=== PATIENT | female | born 1995 | race Caucasian/White ===

== ENCOUNTER 2017-09-11 07:11 | Emergency (ER) | payer OTHER ==
[~2017-09-11] VITALS: Ht 165.1 cm; Wt 165.0 kg
[2017-09-11 08:05] LABS: BASOPHILS # (AUTO) 0.09 x10^3/uL (0-0.1); BASOPHILS % (AUTO) 1 % (0-1); EOSINOPHILS # (AUTO) 0.26 x10^3/uL (0-0.4); EOSINOPHILS % (AUTO) 2 % (1-7); LYMPHOCYTES # (AUTO) 3.38 x10^3/uL (1-3.4); LYMPHOCYTES % (AUTO) 26 % (22-44); MD NO; MEAN CORPUSCULAR HEMOGLOBIN 27.6 pg (27.0-34.8); MEAN CORPUSCULAR HGB CONC 33.1 g/dL (32.4-35.8); MEAN CORPUSCULAR VOLUME 83.3 fL (80-100); MEAN PLATELET VOLUME 9.1 fL (7.4-10.4); MONOCYTES # (AUTO) 0.88 x10^3/uL (0.2-0.8); MONOCYTES % (AUTO) 7 % (2-9); NEUTROPHILS # (AUTO) 8.48 x10^3/uL (1.8-6.8); NEUTROPHILS % (AUTO) 65 % (42-75); PLATELET COUNT 339 x10^3/uL (130-400); RED BLOOD COUNT 4.58 x10^6/uL (3.82-5.3); RED CELL DISTRIBUTION WIDTH 13.7 % (9.6-15.2)
[2017-09-11 08:20] LABS: CALCIUM 8.7 mg/dL (8.5-10.1); CHLORIDE 104 mmol/L (98-107); CREATININE 0.74 mg/dL (0.55-1.02)
[2017-09-11 08:21] LABS: ALANINE AMINOTRANSFERASE 25 U/L (12-78); ALBUMIN 3.1 g/dL (3.4-5.0)
[2017-09-11 08:25] LABS: ALKALINE PHOSPHATASE 79 U/L (45-117); ANION GAP 8 mmol/L (5-15); BILIRUBIN,TOTAL 0.3 mg/dL (0.2-1.0); TOTAL PROTEIN 7.8 g/dL (6.4-8.2)
[2017-09-11] MEDS ORDERED: HYDROcodone/APAP 5/325 TABLET ONE (09:01)
[2017-09-11 09:50] VITALS: BP 141/74
[2017-09-11] MEDS ORDERED: HYDROcodone/APAP 5/325 TABLET PO ONE (10:00)
== END 2017-09-11 10:33 | disposition home or self-care (01) ==
LOC: ED 09:07
DX: L03.115 Cellulitis of right lower limb (principal)
CPT/HCPCS: 36415; 80053; 83880; 85025; 99285

== ENCOUNTER 2018-09-13 07:42 | Inpatient (IN) | payer OTHER ==
[~2018-09-13] VITALS: Ht 167.6 cm; Wt 171.6 kg
--- NOTE | 2018-09-13 08:05 | NUR ---
PT LAYING ON GURNEY ON STOMACH, PA JUST ASSESSED PT. PT TEARFUL STATING SHE HAS A HX OF RECTAL ABSCESS STATING SHE PREVIOUSLY HAD A SEPTIC INFECTION FROM ONE. PT STATES PAIN IS AN 8.5/10 AT THIS TIME. PT AWARE OF POC. DENIES NEEDS AT THIS TIME.
[2018-09-13] MEDS ORDERED: ONDANSETRON 2MG/ML, 2ML ONE ×2 (08:23→17:15)
[2018-09-13] MEDS ORDERED: MORPHINE SULFATE 4 MG/ML, 1ML ONE (08:23)
[2018-09-13] MEDS ORDERED: ONDANSETRON 2MG/ML, 2ML IVPush ONE (08:30)
[2018-09-13] MEDS ORDERED: SODIUM CHLORIDE 0.9% 1,000ML IVBOLUS ONE (08:30)
[2018-09-13] MEDS ORDERED: MORPHINE SULFATE 4 MG/ML, 1ML IVPush PRN (08:30)
[2018-09-13 08:44] LABS: MEAN CORPUSCULAR HEMOGLOBIN 26.4 pg (27.0-34.8); MEAN CORPUSCULAR HGB CONC 32.6 g/dL (32.4-35.8); MEAN CORPUSCULAR VOLUME 80.9 fL (80-100); MEAN PLATELET VOLUME 8.8 fL (7.4-10.4); PLATELET COUNT 368 x10^3/uL (130-400); RED BLOOD COUNT 4.58 x10^6/uL (3.82-5.3); RED CELL DISTRIBUTION WIDTH 14.6 % (9.6-15.2)
--- NOTE | 2018-09-13 08:49 | NUR ---
PIV ATTEMPTED X2 AT THIS TIME. IV US TO BE ATTEMPTED. PT RESTING ON GURNEY WITH PAIN IN RECTAL AREA. VSS. NADN.
[2018-09-13 08:53] LABS: ALBUMIN 2.9 g/dL (3.4-5.0); ANION GAP 6 mmol/L (5-15); CALCIUM 8.9 mg/dL (8.5-10.1); CHLORIDE 109 mmol/L (98-107)
[2018-09-13 08:59] LABS: CREATININE 0.83 mg/dL (0.55-1.02)
[2018-09-13 09:07] LABS: BASOPHILS # (AUTO) 0.05 x10^3/uL (0-0.1); BASOPHILS % (AUTO) 0 % (0-1); EOSINOPHILS # (AUTO) 0.14 x10^3/uL (0-0.4); EOSINOPHILS % (AUTO) 1 % (1-7); LYMPHOCYTES % (AUTO) 18 % (22-44); MD SCAN; MONOCYTES % (AUTO) 7 % (2-9); NEUTROPHILS # (AUTO) 12.92 x10^3/uL (1.8-6.8); NEUTROPHILS % (AUTO) 74 % (42-75)
--- NOTE | 2018-09-13 09:14 | NUR ---
PIV STARTED. PT MEDICATED PER EMAR. PT RESTING ON GURNEY. NADN. LIGHTS DIMMED FOR PT COMFORT. PT DENIES NEEDS. CALL LIGHT IN REACH.
--- NOTE | 2018-09-13 09:18 | NUR ---
Preceptor RN: [facility]
[2018-09-13] MEDS ORDERED: OMNIPAQUE 350 MG/ML, 150 ML BOTTLE ONE (09:33)
--- NOTE | 2018-09-13 09:41 | NUR ---
PT BACK FROM CT. LAB AT BEDSIDE DRAWING BLOOD CULTURES. PT AWARE OF NEED FOR UA. PT DENIES NEEDS. RAFAL. AMBROSE.
--- NOTE | 2018-09-13 09:48 | NUR ---
PT RESTING ON GURNEY. VSS. RAFAL. STATES SHE DOES NOT NEED TO URINATE AT THIS TIME BUT WILL LET THIS RN KNOW WHEN SHE NEEDS TO GO. DENIES NEEDS.
--- NOTE | 2018-09-13 10:07 | NUR ---
PT AMBULATORY TO [facility] WITH STEADY GAIT TO PROVIDE URINE SAMPLE AT THIS TIME.
--- NOTE | 2018-09-13 10:16 | NUR ---
PT AMBULATORY WITH STEADY GAIT BACK TO ROOM. RESTING ON GURNEY AND CONNECTED TO MONITORS. NADN. VSS. CALL LIGHT IN REACH. PT DENIES NEEDS AT THIS TIME.
[2018-09-13 10:28] LABS: MICROSCOPIC NOT IND
[2018-09-13 10:29] LABS: CULTURE INDICATED? NO
[2018-09-13] MEDS ORDERED: HYDROmorphone 1 MG/ML, 1ML VIAL ONE (10:46)
--- NOTE | 2018-09-13 10:49 | NUR ---
PT MEDICATED PER EMAR AT THIS TIME. STATES PAIN IS CURRENTLY 7.5/10. DENIES NEEDS. VSS. PAULINEN.
[2018-09-13] MEDS ORDERED: METRONIDAZOLE PMX 500MG/100ML 100 ML IV ONE (11:00)
[2018-09-13] MEDS ORDERED: HYDROmorphone 2 MG/ML, 1ML IVPush PRN ×3 (11:00→17:30)
[2018-09-13] MEDS ORDERED: CIPROFLOXACIN/PMX 400MG/200ML 200 ML IV ONE (11:00)
[2018-09-13] MEDS ORDERED: BIRTH CONTROL (11:01)
--- NOTE | 2018-09-13 11:02 | NUR ---
PT STATES HER PAIN IS NOW 2/. RESTING ON GURARSEN. RAFAL. VSS.
[2018-09-13] MEDS ORDERED: POTASSIUM CHLORIDE 20 MEQ in D5%-0.45% NACL 1,000 ML IV ONE (11:04)
[2018-09-13] MEDS ORDERED: CIPROFLOXACIN/PMX 400MG/200ML 200 ML ONE (11:05)
[2018-09-13] MEDS ORDERED: SODIUM CHLORIDE FLUSH 10ML SYR IVF PRN (11:30)
[2018-09-13] MEDS ORDERED: ONDANSETRON 2MG/ML, 2ML IVPush PRN (11:30)
--- NOTE | 2018-09-13 11:32 | NUR ---
REPORT GIVEN TO TANIA NAVARRETE.
[2018-09-13 11:51] VITALS: BP 102/66
[2018-09-13 13:25] VITALS: BP 113/75
[2018-09-13] MEDS ORDERED: FENTANYL PF 100 MCG/2ML ONE ×2 (15:55→17:13)
[2018-09-13] MEDS ORDERED: MIDAZOLAM 1 MG/ML, 2ML ONE (15:55)
[2018-09-13] MEDS ORDERED: OXYcodone 5 MG/5 ML ORAL.SOL UDC ONE (17:13)
[2018-09-13] MEDS ORDERED: ROCURONIUM 10MG/ML,5ML ONE ×2 (17:15→17:16)
[2018-09-13] MEDS ORDERED: SUCCINYLCHOLINE 20 MG/ML, 10ML ONE (17:15)
[2018-09-13] MEDS ORDERED: NEOSTIGMINE 1 MG/ML, 10ML ONE (17:15)
[2018-09-13] MEDS ORDERED: PROPOFOL 10 MG/ML, 20ML ONE (17:15)
[2018-09-13] MEDS ORDERED: CEFAZOLIN 1,000 MG ONE (17:15)
[2018-09-13] MEDS ORDERED: DEXAMETHASONE 4 MG/ML, 1ML ONE (17:15)
[2018-09-13] MEDS ORDERED: ACETAMINOPHEN 325 MG TABLET PO PRN ×2 (17:30→20:00)
[2018-09-13] MEDS ORDERED: hydrALAzine 20 MG/ML, 1ML IV PRN ×2 (17:30→20:00)
[2018-09-13] MEDS ORDERED: MEPERIDINE/PF 25MG/0.5ML IVPush PRN (17:30)
[2018-09-13] MEDS ORDERED: PROMETHAZINE 25 MG/ML, 1ML IV PRN (17:30)
[2018-09-13] MEDS ORDERED: DIAZEPAM 5 MG/ML, 2ML IVPush PRN (17:30)
[2018-09-13] MEDS ORDERED: LABETALOL 5MG/ML, 20ML IV PRN (17:30)
[2018-09-13] MEDS ORDERED: OXYcodone 5 MG/5 ML ORAL.SOL UDC PO PRN ×2 (17:30→19:00)
[2018-09-13] MEDS ORDERED: KETOROLAC 30 MG/1 ML IV PRN (17:30)
[2018-09-13] MEDS ORDERED: FENTANYL PF 100 MCG/2ML IV PRN (17:30)
[2018-09-13] MEDS ORDERED: ALBUTEROL SULFATE 2.5 MG/3 ML NPPB PRN (17:30)
[2018-09-13] MEDS ORDERED: LORazepam 2 MG/ML, 1ML IV PRN (19:00)
[2018-09-13] MEDS ORDERED: LORazepam 1MG TABLET PO PRN (19:00)
[2018-09-13 19:20] VITALS: BP 130/74
[2018-09-13] MEDS ORDERED: DIPHENHYDRAMINE 50 MG/ML, 1ML IV PRN (20:00)
[2018-09-13] MEDS ORDERED: ENALAPRILAT 1.25 MG/ML, 2ML IV PRN (20:00)
[2018-09-13] MEDS ORDERED: DIPHENHYDRAMINE 25 MG CAPSULE PO PRN (20:00)
[2018-09-13] MEDS: ONDANSETRON 2MG/ML, 2ML IV PRN (21:02)
[2018-09-13] MEDS: OXYcodone/APAP 5/325MG TABLET PO PRN (21:02)
[2018-09-13] MEDS: METRONIDAZOLE PMX 500MG/100ML 100 ML IVPB SCH (21:08)
[2018-09-13] MEDS: [UNRECOGNIZED DRUG - REMARK] MC SCH (21:09)
[2018-09-13] MEDS: CIPROFLOXACIN/PMX 400MG/200ML 200 ML IVPB SCH (23:30)
[2018-09-13] MEDS: POTASSIUM CHLORIDE 20 MEQ in D5%-0.45% NACL 1,000 ML IV SCH (23:30)
[2018-09-13 23:56] VITALS: BP 125/78
[2018-09-14] MEDS: OXYcodone/APAP 5/325MG TABLET PO PRN ×6 (00:10→17:26)
[2018-09-14 03:07] VITALS: BP 126/70
[2018-09-14] MEDS: [UNRECOGNIZED DRUG - REMARK] MC SCH (03:30)
[2018-09-14 05:03] LABS: BASOPHILS # (AUTO) 0.01 x10^3/uL (0-0.1); BASOPHILS % (AUTO) 0 % (0-1); EOSINOPHILS % (AUTO) 0 % (1-7); LYMPHOCYTES # (AUTO) 1.03 x10^3/uL (1-3.4); LYMPHOCYTES % (AUTO) 6 % (22-44); MD NO; MEAN CORPUSCULAR HEMOGLOBIN 26.6 pg (27.0-34.8); MEAN CORPUSCULAR HGB CONC 32.2 g/dL (32.4-35.8); MEAN CORPUSCULAR VOLUME 82.6 fL (80-100); MEAN PLATELET VOLUME 8.9 fL (7.4-10.4); MONOCYTES # (AUTO) 0.56 x10^3/uL (0.2-0.8); MONOCYTES % (AUTO) 3 % (2-9); NEUTROPHILS # (AUTO) 14.86 x10^3/uL (1.8-6.8); NEUTROPHILS % (AUTO) 90 % (42-75); PLATELET COUNT 382 x10^3/uL (130-400); RED BLOOD COUNT 4.33 x10^6/uL (3.82-5.3); RED CELL DISTRIBUTION WIDTH 14.7 % (9.6-15.2)
[2018-09-14 05:10] LABS: CHLORIDE 107 mmol/L (98-107)
[2018-09-14 05:15] LABS: ALBUMIN 2.6 g/dL (3.4-5.0); ANION GAP 9 mmol/L (5-15); CALCIUM 8.5 mg/dL (8.5-10.1); CREATININE 0.71 mg/dL (0.55-1.02)
[2018-09-14] MEDS: METRONIDAZOLE PMX 500MG/100ML 100 ML IVPB SCH (05:18)
[2018-09-14 07:45] VITALS: BP 130/78
[2018-09-14] MEDS: CIPROFLOXACIN/PMX 400MG/200ML 200 ML IVPB SCH (11:15)
[2018-09-14] MEDS: POTASSIUM CHLORIDE 20 MEQ in D5%-0.45% NACL 1,000 ML IV SCH (12:36)
[2018-09-14] MEDS: ONDANSETRON 2MG/ML, 2ML IV PRN (13:00)
[2018-09-14 13:38] VITALS: BP 126/72
[2018-09-14] MEDS ORDERED: SULF1TAB24 PO (16:07)
[2018-09-14] MEDS ORDERED: OXYC-302 PO (16:09)
[2018-09-14] MEDS ORDERED: ENOXAPARIN 40 MG/0.4 ML SQ SCH (19:00)
[2018-11-28] MEDS ORDERED: TRAM50TA2 PO (12:59)
== END 2018-09-14 19:45 | disposition home or self-care (01) | DRG 345 ==
LOC: ED 10:41 → EDIP 11:21 → 4NOR 11:50
PROVIDERS: ADMIT Surgery; ATTEND Surgery
PROC: 0D9P0ZZ Drainage of Rectum, Open Approach (ICD-10-PCS; principal; 2018-09-13 16:00)
DX: K61.2 Anorectal abscess (principal); Z68.44 Body mass index [BMI] 60.0-69.9, adult; E66.01 Morbid (severe) obesity due to excess calories; K62.89 Other specified diseases of anus and rectum; Z88.0 Allergy status to penicillin; Z88.1 Allergy status to other antibiotic agents; Z82.3 Family history of stroke; Z83.3 Family history of diabetes mellitus; Z82.49 Family history of ischemic heart disease and other diseases of the circulatory system
CPT/HCPCS: 36415; 72193; 80048; 81003; 82040; 83605; 84145; 84703; 85025; 87040; 87070; 87075; 87205; 96361; 96374; 96375; G0378; J0690; J0744; J1100; J1170; J2250; J2405; J2704; J2710; J3010; J3480; Q9967; J0330; J2270; J7030

== ENCOUNTER 2019-02-03 08:04 | Outpatient (CLI) | payer OTHER ==
[~2019-02-03 08:04] MED LIST: BIRTH CONTROL; OXYC-302 PO; SULF1TAB24 PO; TRAM50TA2 PO
[2019-02-03] MEDS ORDERED: LORA-446 PO (08:49)
[2019-02-03] MEDS ORDERED: NORG1TAB7 PO (08:49)
== END 2019-02-03 23:59 | disposition home or self-care (01) ==
LOC: STAR 08:04
PROVIDERS: ATTEND Surgery
DX: Z02.9 Encounter for administrative examinations, unspecified (principal)

== ENCOUNTER 2019-02-07 06:03 | Day surgery (SDC) | payer OTHER ==
[~2019-02-07] VITALS: Ht 160 cm; Wt 166.0 kg
[~2019-02-07 06:03] MED LIST changes: +LORA-446 PO; +NORG1TAB7 PO
[2019-02-07 06:13] VITALS: BP 156/92
[2019-02-07] MEDS ORDERED: LACTATED RINGERS 1,000 ML IV SCH (06:15)
[2019-02-07] MEDS ORDERED: EPINEPHRINE 1 MG/ML, 1ML ONE (06:29)
[2019-02-07] MEDS ORDERED: BUPIVACAINE/PF 0.5% ONE (06:29)
[2019-02-07] MEDS ORDERED: ALBU8.5H8 PO (06:35)
[2019-02-07 06:53] LABS: HCG UR SG 1.024 (1.003-1.030)
[2019-02-07] MEDS ORDERED: PROPOFOL 50 ML ONE (06:57)
[2019-02-07] MEDS ORDERED: FENTANYL PF 250 MCG/5ML ONE (06:58)
[2019-02-07] MEDS ORDERED: MIDAZOLAM 1 MG/ML, 2ML ONE (06:58)
[2019-02-07] MEDS ORDERED: CIPROFLOXACIN/PMX 400MG/200ML 200 ML ONE (07:28)
[2019-02-07] MEDS ORDERED: METRONIDAZOLE PMX 500MG/100ML 100 ML ONE (07:28)
[2019-02-07] MEDS ORDERED: HYDROmorphone 2 MG/ML, 1ML IVPush PRN (07:30)
[2019-02-07] MEDS ORDERED: MIDAZOLAM 1 MG/ML, 2ML IV PRN (07:30)
[2019-02-07] MEDS ORDERED: EPHEDRINE 50 MG/ML, 1ML IM PRN (07:30)
[2019-02-07] MEDS ORDERED: EPHEDRINE 50 MG/ML, 1ML IVPush PRN (07:30)
[2019-02-07] MEDS ORDERED: ONDANSETRON ODT 8 MG PO PRN (07:30)
[2019-02-07] MEDS ORDERED: METOPROLOL 1 MG/ML, 5ML IV PRN (07:30)
[2019-02-07] MEDS ORDERED: ONDANSETRON 2MG/ML, 2ML IV PRN (07:30)
[2019-02-07] MEDS ORDERED: PROMETHAZINE 25 MG/ML, 1ML IV PRN (07:30)
[2019-02-07] MEDS ORDERED: DIAZEPAM 5 MG/ML, 2ML IVPush PRN (07:30)
[2019-02-07] MEDS ORDERED: OXYcodone 5 MG/5 ML ORAL.SOL UDC PO PRN (07:30)
[2019-02-07] MEDS ORDERED: DIPHENHYDRAMINE 50 MG/ML, 1ML IVPush PRN (07:30)
[2019-02-07] MEDS ORDERED: ACETAMINOPHEN 325 MG TABLET PO PRN (07:30)
[2019-02-07] MEDS ORDERED: MEPERIDINE/PF 25MG/ML,1ML IVPush PRN (07:30)
[2019-02-07] MEDS ORDERED: FENTANYL PF 100 MCG/2ML IV PRN (07:30)
[2019-02-07] MEDS ORDERED: ONDANSETRON 2MG/ML, 2ML ONE ×2 (08:00→08:53)
[2019-02-07] MEDS ORDERED: SUCCINYLCHOLINE 20 MG/ML, 10ML ONE (08:00)
[2019-02-07] MEDS ORDERED: ROCURONIUM 10MG/ML,5ML ONE (08:00)
[2019-02-07] MEDS ORDERED: DEXAMETHASONE 4 MG/ML, 1ML ONE (08:00)
[2019-02-07] MEDS ORDERED: PROPOFOL 10 MG/ML, 20ML ONE (08:00)
[2019-02-07] MEDS ORDERED: OXYcodone 5 MG/5 ML ORAL.SOL UDC ONE (09:22)
== END 2019-02-07 13:00 | disposition home or self-care (01) ==
LOC: OUT 06:03
PROVIDERS: ATTEND Surgery
DX: K60.3 Anal fistula (principal); J45.909 Unspecified asthma, uncomplicated; E66.01 Morbid (severe) obesity due to excess calories; Z68.44 Body mass index [BMI] 60.0-69.9, adult; Z79.899 Other long term (current) drug therapy; Z86.718 Personal history of other venous thrombosis and embolism; Z88.0 Allergy status to penicillin; Z87.891 Personal history of nicotine dependence; Z82.49 Family history of ischemic heart disease and other diseases of the circulatory system; Z83.3 Family history of diabetes mellitus; Z82.3 Family history of stroke
CPT/HCPCS: 46275; 81025; 88304; C1729; J0171; J0330; J0744; J1100; J2250; J2405; J2704; J3010; J7120

== ENCOUNTER 2019-06-17 02:17 | Emergency (ER) | payer OTHER ==
[~2019-06-17] VITALS: Ht 160 cm; Wt 170.1 kg
[~2019-06-17 02:17] MED LIST changes: +ALBU8.5H8 PO
[2019-06-17 02:22] VITALS: BP 145/89
[2019-06-17] MEDS ORDERED: HYDROcodone/APAP 5/325 TABLET ONE (02:40)
[2019-06-17] MEDS ORDERED: IBUPROFEN 600 MG TABLET ONE (02:40)
[2019-06-17] MEDS ORDERED: IBUPROFEN 600 MG TABLET PO ONE (03:00)
[2019-06-17] MEDS ORDERED: HYDROcodone/APAP 5/325 TABLET PO PRN (03:00)
== END 2019-06-17 03:08 | disposition home or self-care (01) ==
LOC: ED 02:50
DX: K02.9 Dental caries, unspecified (principal); K08.89 Other specified disorders of teeth and supporting structures; R94.31 Abnormal electrocardiogram [ECG] [EKG]; Z87.891 Personal history of nicotine dependence
CPT/HCPCS: 93005; 99283

== ENCOUNTER 2020-10-18 09:01 | Day surgery (SDC) | payer OTHER ==
[~2020-10-18] VITALS: Ht 167.6 cm; Wt 177.8 kg
[~2020-10-18 09:01] MED LIST changes: +ACETAMINOPHEN 325 MG TABLET PO PRN; +EPHEDRINE 50 MG/ML, 1ML IVPush PRN; +FENTANYL PF 100 MCG/2ML IV PRN; +HYDROmorphone 1 MG/ML, 1ML INJ IVPush PRN; +LABETALOL 5MG/ML, 20ML IV PRN; +MEPERIDINE/PF 25MG/0.5ML IVPush PRN; +ONDANSETRON 2MG/ML, 2ML IVPush PRN; -OXYC-302 PO; +OXYC1TAB12 PO; +OXYcodone 5 MG/5 ML ORAL.SOL UDC PO PRN; +PROMETHAZINE 25 MG/ML, 1ML IVPush PRN; +SULF-23 PO; -SULF1TAB24 PO; +hydrALAzine 20 MG/ML, 1ML IV PRN
[2020-10-18 09:45] VITALS: BP 147/91
[2020-10-18] MEDS ORDERED: BUPR-86 PO (09:45)
[2020-10-18] MEDS ORDERED: PLEASE ENTER HEIGHT AND WEIGHT MC SCH (10:00)
[2020-10-18] MEDS ORDERED: CHLORHEXIDINE 15 ML UDC PO ONE (10:00)
[2020-10-18] MEDS ORDERED: LACTATED RINGERS 1,000 ML IV SCH (10:00)
[2020-10-18] MEDS ORDERED: MIDAZOLAM 1 MG/ML, 2ML ONE (10:21)
[2020-10-18] MEDS ORDERED: FENTANYL PF 250 MCG/5ML ONE (10:21)
[2020-10-18] MEDS ORDERED: ONDANSETRON 2MG/ML, 2ML ONE (10:24)
[2020-10-18] MEDS ORDERED: PROPOFOL 10 MG/ML, 20ML ONE (10:24)
[2020-10-18] MEDS ORDERED: SUCCINYLCHOLINE 20 MG/ML, 10ML ONE (10:24)
[2020-10-18] MEDS ORDERED: DEXAMETHASONE 4 MG/ML, 1ML ONE (10:24)
[2020-10-18] MEDS ORDERED: GLYCOPYRROLATE 0.2MG/1ML, 5ML ONE (10:24)
[2020-10-18] MEDS ORDERED: ROCURONIUM 10MG/ML,5ML ONE (10:24)
[2020-10-18] MEDS ORDERED: NEOSTIGMINE 1 MG/ML, 10ML ONE (10:24)
[2020-10-18 10:36] LABS: HCG UR SG 1.015 (1.003-1.030)
[2020-10-18] MEDS ORDERED: EPINEPHRINE 1 MG/ML, 1ML ONE ×2 (10:56→11:30)
[2020-10-18] MEDS ORDERED: BUPIVACAINE/PF 0.5% ONE ×4 (10:56→11:30)
[2020-10-18] MEDS ORDERED: ALBUTEROL HFA 90 MCG/SPRAY ONE (11:18)
[2020-10-18] MEDS ORDERED: KETOROLAC 30 MG/1 ML ONE (11:20)
[2020-10-18] MEDS ORDERED: CIPROFLOXACIN/PMX 400MG/200ML 200 ML ONE (11:25)
[2020-10-18] MEDS ORDERED: SUGAMMADEX 200 MG/2 ML IVPush ONE (12:52)
[2020-10-18] MEDS ORDERED: ALBUTEROL/IPRATROPIUM 2.5MG/0.5MG, 3 ML ONE (13:20)
[2020-10-18] MEDS ORDERED: FENTANYL PF 100 MCG/2ML ONE (13:43)
[2020-10-18] MEDS ORDERED: MEPERIDINE/PF 25MG/ML,1ML ONE (14:34)
[2020-10-18] MEDS ORDERED: OXYcodone/APAP 10/325MG TABLET PO ONE (16:00)
[2020-10-18] MEDS ORDERED: PROMETHAZINE 25MG TABLET PO PRN (16:00)
== END 2020-10-18 17:30 | disposition home or self-care (01) ==
LOC: OR 09:01
PROVIDERS: ATTEND Surgery
DX: C49.4 Malignant neoplasm of connective and soft tissue of abdomen (principal); J45.909 Unspecified asthma, uncomplicated; Z79.899 Other long term (current) drug therapy; Z86.718 Personal history of other venous thrombosis and embolism; Z88.0 Allergy status to penicillin; Z88.8 Allergy status to other drugs, medicaments and biological substances; Z83.3 Family history of diabetes mellitus; Z82.5 Family history of asthma and other chronic lower respiratory diseases
CPT/HCPCS: 22905; 81025; 88307; J0171; J0330; J0744; J1100; J1885; J2175; J2250; J2405; J2704; J2710; J3010; J7120